=== PATIENT | male | born 1935 | race Caucasian/White ===

== ENCOUNTER 2019-05-01 11:17 | Observation (INO) | payer OTHER ==
[~2019-05-01] VITALS: Ht 162.6 cm; Wt 58.1 kg
[2019-05-01 11:23] VITALS: Ht 162.6 cm; Wt 58.1 kg
--- NOTE | 2019-05-01 11:34 | NUR ---
PT WHEELED TO BED T2A
--- NOTE | 2019-05-01 11:52 | NUR ---
DR LUIS AT BEDSIDE FOR MSE
[2019-05-01 12:11] LABS: PLATELET COUNT 156 x10^3mcL (130-400); RED CELL DISTRIBUTION WIDTH 13.8 % (11.5-14.5)
[2019-05-01 12:27] LABS: CALCIUM 8.9 mg/dL (8.5-10.1); CARBON DIOXIDE 28.7 mmol/L (21-32); CHLORIDE SERUM 107 mmol/L (98-107); CREATININE SERUM 1.3 mg/dL (0.7-1.3); GLUCOSE SERUM 187 mg/dL (74-106); POTASSIUM SERUM 3.8 mmol/L (3.5-5.1); SODIUM SERUM 143 mmol/L (136-145)
[2019-05-01 12:35] LABS: microscopic required? NO
[2019-05-01 12:42] LABS: ALBUMIN 3.5 g/dL (3.4-5.0); ALKALINE PHOSPHATASE 68 U/L (46-116); ALT/SGPT 20 U/L (16-63); AST/SGOT 14 U/L (15-37); BILIRUBIN TOTAL 0.4 mg/dL (0.20-1.00); FREE T4 1.08 ng/dL (0.76-1.46); TOTAL PROTEIN, SERUM 6.9 g/dL (6.4-8.2)
--- NOTE | 2019-05-01 12:52 | NUR ---
PT RESTING COMFORTABLY NO DISTRESS ON FULL CM
[2019-05-01 13:11] LABS: BASOPHIL % 0.4 % (0-2)
[2019-05-01 14:00] LABS: urine erythrocyte NEGATIVE (NEGATIVE)
--- NOTE | 2019-05-01 14:04 | NUR ---
PT SITTING ON BED ON FULL CM ASYMPTOMATIC VSS WILL CONTINUE TO MONITOR
[2019-05-01] MEDS ORDERED: HCTZ/TRIAMTEREN1 CA1 (14:08)
[2019-05-01] MEDS ORDERED: SIMVASTATIN5 M2 (14:08)
[2019-05-01] MEDS ORDERED: FLO4 (14:08)
[2019-05-01] MEDS ORDERED: COREG6.25 M1 (14:09)
[2019-05-01 14:31] LABS: AMPHETAMINE QUAL UR NONE DETECTED (See below)
--- NOTE | 2019-05-01 14:53 | NUR ---
REPORT GIVEN TO CARIN DAWSON RESUMING CARE OF PT IN TELE FLOOR
--- NOTE | 2019-05-01 15:36 | NUR ---
PT TRANSPORTED TO TELE FLOOR VIA GURNEY ON PORTABLE CM BY JENNIFER DAWSON AND EMT. PT IN NO DISTRESS. CARIN DAWSON RESUMED CARE OF PT
[2019-05-01 16:02] VITALS: BP 158/86
--- NOTE | 2019-05-01 16:16 | NUR ---
RECEIVED PT FROM ER, PT ADMIT FOR PALPITATION. PT IS A/O X4, VERBAL RESPONSIVE, ABLE TO TELL WHAT HE NEEDS. LEFT EYE PROSTHESIS, LUNG SOUND CLEAR BIALTERAL, NO COUGH, NO SOB, PT IS ON TELE 9, NSR, WITH PVC, DENY ANY CHEST PAIN OR DISCOMFORT, BOWEL SOUND PRESENT ALL 4 QUADRANTS, NO DISTENTION, NO TENDER. PEDAL PULSE PRESENT BOTH FEET, NO EDEMA, IV AT LEFT AC, NO LEAKING, NO INFILTRATION. ALL ADLS ASSIST, ALL NEED MET, CALL LIGHT IN REACH, WILL CONTINUE TO MONITOR.
--- NOTE | 2019-05-01 16:36 | NUR ---
PT ADMITTED FROM ER. PT AWAKE, ALERT. A/OX4. PT DENIES ANY CHEST PAIN OR SOB AT THIS TIME. PT ORIENTED TO ROOM. PT INSTRUCTED TO USE CALL LIGHT FOR ANY ASSISTANCE OR WORSENING OF SYMPTOMS. SAFETY MEASURES IN PLACE.
--- NOTE | 2019-05-01 18:23 | NUR ---
PT STABLE AT THIS TIME. NO ACUTE DISTRESS OR DISCOMFORT NOTED. ALL NEEDS MET THROUGHOUT SHIFT. 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 SAFETY MAINTAINED.
--- NOTE | 2019-05-01 19:55 | NUR ---
PATIENT RECEIVED AWAKE, ALERT, ORIENTED X4 IN BED. RESPIRATION EVEN AND UNLABORED, ON ROOM AIR. SALINE LOCK TO LEFT ANTECUBITAL AREA PATENT AND INTACT. LEFT EYE PROSTHESIS NOTED. C/O DIFFICULTY VOIDING DUE TO PROSTATE PROBLEM. AMBULATORY. SKIN DRY AND INTACT. ON TELE #9. WILL CONTINUE TO MONITOR.
[2019-05-01 21:19] VITALS: BP 137/75
[2019-05-02 06:09] VITALS: BP 115/65
--- NOTE | 2019-05-02 06:16 | NUR ---
PATIENT RESTING IN BED. RESPIRATION EVEN AND UNLABORED, ON ROOM AIR. DENIES PAIN AT THIS TIME. SALINE LOCK TO LEFT ANTECUBITAL AREA PATENT AND INTACT. ASSISTED WITH NEEDS. SAFETY OBSERVED. PLACED BED IN THE LOWEST POSITION. PLACED CALL LIGHT WITHIN REACH AT ALL TIMES.
[2019-05-02 06:38] LABS: BASOPHIL % 0.6 % (0-2); PLATELET COUNT 161 x10^3mcL (130-400)
[2019-05-02 07:07] LABS: ALBUMIN 3.4 g/dL (3.4-5.0); ALKALINE PHOSPHATASE 68 U/L (46-116); ALT/SGPT 23 U/L (16-63); AST/SGOT 17 U/L (15-37); BILIRUBIN TOTAL 0.6 mg/dL (0.20-1.00); CALCIUM 9.2 mg/dL (8.5-10.1); CARBON DIOXIDE 29.8 mmol/L (21-32); CHLORIDE SERUM 108 mmol/L (98-107); CREATININE SERUM 1.3 mg/dL (0.7-1.3); GLUCOSE SERUM 127 mg/dL (74-106); MAGNESIUM 1.8 mg/dL (1.8-2.4); POTASSIUM SERUM 4.5 mmol/L (3.5-5.1); SODIUM SERUM 144 mmol/L (136-145); TOTAL PROTEIN, SERUM 7.1 g/dL (6.4-8.2)
--- NOTE | 2019-05-02 07:30 | NUR ---
RECEIVED PATIENT IN BED, AWAKE ALERT AND ORIENTED. ESTONIAN SPEAKING. DENIES ANY CHEST PAIN OR PALPITATIONS. TELE 9 NSR WITH OCC PVC' RESP EVEN AND UNLABORED, LUNGS CLEAR ON ROOM AIR. AMBULATES WITH SLOW STEADY GAIT. HL LEFT A/C. NO ACUTE DISTRESS NOTED.
[2019-05-02 09:09] VITALS: BP 122/57
--- NOTE | 2019-05-02 12:25 | NUR ---
ECHOCARDIOGRAM NOT DONE-DISCHARGED
[2019-05-02 13:04] VITALS: BP 122/57
--- NOTE | 2019-05-02 13:24 | NUR ---
PATIENT READY FOR D/C HOME. HL AND TELE DC'D. DISCHARGE INSTRUCTIONS GIVEN. PERSONAL BELONGINGS LIST SIGNED. EDUCATION PROVIDED IN [place] ON HEART FAILURE FOR PATIENT. CONDITIION APPEARS STABLE.
--- NOTE | 2019-05-02 13:29 | NUR ---
PATIENT'S PLAN OF CARE WAS DISCUSSED AND REVIEWED WITH CHEMICAL DEPENDENCY THERAPIST:ALICIA HERNANDEZ. I HAVE REVIEWED THE DATA COLLECTION BY CHEMICAL DEPENDENCY THERAPIST (NAME):ALICIA HERNANDEZ. ENTERED ON (DATE/TIME):05/02/19. I CONCUR WITH THE DATA AND ANY EXCEPTIONS OR COMMENTS ARE LISTED BELOW:
== END 2019-05-02 13:48 | disposition home or self-care (01) | DRG 310 ==
LOC: ED 11:17 → DU 14:07
PROVIDERS: Emergency Medicine; ADMIT Internal Medicine Pulmonary Disease
DX: I49.3 Ventricular premature depolarization (principal); I11.9 Hypertensive heart disease without heart failure; I25.10 Atherosclerotic heart disease of native coronary artery without angina pectoris; E11.9 Type 2 diabetes mellitus without complications; E78.5 Hyperlipidemia, unspecified; Z95.1 Presence of aortocoronary bypass graft; Z68.21 Body mass index [BMI] 21.0-21.9, adult
CPT/HCPCS: 83880; 84439; G0378; J1644